=== PATIENT | female | born 1960 | race Caucasian/White ===

== ENCOUNTER 2017-03-13 06:26 | Day surgery (SDC) | payer BC ==
[2017-03-13] MEDS ORDERED: Sodium Chloride 0.9% 1,000 ML IV SCH (07:00)
[2017-03-13] MEDS ORDERED: Midazolam 1 MG/ML 2 ML SDV ONE (07:42)
[2017-03-13] MEDS ORDERED: Propofol 200 MG/20 ML SDV ONE (07:42)
[2017-03-13] MEDS ORDERED: fentaNYL 100 MCG/2 ML SDV ONE (07:42)
--- NOTE | 2017-03-13 11:31 | OR ---
DATE OF PROCEDURE: 03/13/2017 PROCEDURE: Colonoscopy. FINDINGS: Diverticulosis, mild. COMPLICATIONS: None. BAND SPLITTER: None. ANESTHESIA: MAC. PREOPERATIVE DIAGNOSIS: Screening colonoscopy. POSTOPERATIVE DIAGNOSIS: Screening colonoscopy. RISKS: Risks, benefits, alternatives, and limitations including, but not limited to infection, bleeding, and perforation were explained to the patient, and they wished to proceed. PROCEDURE IN DETAIL: The patient was placed in left lateral decubitus position. Digital rectal exam was performed without abnormality. The scope was introduced and advanced atraumatically to the ileocecal valve. A photo was taken of this. The scope was brought back to the ascending, transverse, descending colons, and retroflexed. The patient had diverticulosis, which would be described as very mild and limited to sigmoid colon. No colitis. No masses. No polyps. No bleeding. The patient tolerated the procedure well. Antonio Donaldson MD /[id number]
== END 2017-03-13 09:35 | disposition home or self-care (01) ==
LOC: JP.SDS 06:26
PROVIDERS: ATTEND Surgery
DX: Z12.11 Encounter for screening for malignant neoplasm of colon (principal); K57.30 Diverticulosis of large intestine without perforation or abscess without bleeding; I10 Essential (primary) hypertension; K21.9 Gastro-esophageal reflux disease without esophagitis; F41.9 Anxiety disorder, unspecified; F32.9 Major depressive disorder, single episode, unspecified
CPT/HCPCS: 45378; J2250; J2704; J3010; J7040; J7030

== ENCOUNTER 2024-09-15 15:37 | Emergency (ER) | payer OTHER ==
[2024-09-15] MEDS: methylPREDNISolone Sodium Succinate 125 MG/2 ML SDV IVPUSH ONE (16:13)
[2024-09-15] MEDS: diphenhydrAMINE 50 MG/ML SDV IVPUSH ONE (16:14)
[2024-09-15] MEDS: Ondansetron 4 MG Tab.DIS PO ONE (17:01)
== END 2024-09-15 18:12 | disposition home or self-care (01) ==
LOC: JP.ED 15:37
DX: T63.411A Toxic effect of venom of centipedes and venomous millipedes, accidental (unintentional), initial encounter (principal); E78.00 Pure hypercholesterolemia, unspecified; I10 Essential (primary) hypertension; K21.9 Gastro-esophageal reflux disease without esophagitis; Z91.030 Bee allergy status; Z79.899 Other long term (current) drug therapy
CPT/HCPCS: 96374; 96375; 99282; J1200; J1308; J2919; J7030; Q0162